=== PATIENT | female | born 1990 ===

== ENCOUNTER 2019-03-21 15:25 | Observation (INO) | payer OTHER ==
[~2019-03-21] VITALS: Ht 157.5 cm; Wt 83.0 kg
[2019-03-21 17:39] LABS: HIV RAPID SCREEN NON-REACTIVE (NONREACTIVE)
[2019-03-21 18:02] LABS: BASOPHILS % (AUTO) 0.2 % (0.0-2.0); EOSINOPHILS % (AUTO) 0.5 % (1.0-6.0); HEMOGLOBIN 8.4 g/dL (12.0-16.0); LYMPHOCYTES # (AUTO) 1.4 K/uL (1.0-4.8); LYMPHOCYTES % (AUTO) 19.6 % (22.0-44.0); MEAN CORPUSCULAR HEMOGLOBIN 24.3 pg (26.0-34.0); MEAN CORPUSCULAR HGB CONC 32.4 G/dL (31.0-37.0); MEAN CORPUSCULAR VOLUME 75 fL (80-100); MONOCYTES # (AUTO) 0.3 K/uL (0.1-1.0); MONOCYTES % (AUTO) 4.9 % (2.0-9.0); NEUTROPHILS # (AUTO) 5.2 K/uL (1.8-7.7); NEUTROPHILS % (AUTO) 74.8 % (40.0-70.0); PLATELET COUNT (AUTO) 230 K/uL (150-450); RED BLOOD CELL COUNT(AUTO) 3.47 MIL/uL (4.00-5.20)
[2019-03-21 20:39] LABS: RAPID PLASMA REAGIN NONREACTIVE (NONREACTIVE)
[2019-03-22 16:27] VITALS: BP 109/55
== END 2019-03-22 16:30 | disposition short-term general hospital (02) ==
LOC: 4S 15:25
PROVIDERS: ADMIT Obstetrics & Gynecology Obstetrics; ATTEND Obstetrics & Gynecology Obstetrics
DX: O42.913 Preterm premature rupture of membranes, unspecified as to length of time between rupture and onset of labor, third trimester (principal); Z3A.35 35 weeks gestation of pregnancy
CPT/HCPCS: 36415; 76805; 76811; 80307 ×8; 81001; 85025; 86592; 86762; 86850; 86900; 86901; 87081; 87340; 89060; G0378 ×2